=== PATIENT | male | born 1955 | race Caucasian/White ===

== ENCOUNTER 2023-10-01 11:42 | Inpatient (IN) | payer MEDICARE, MEDICAID ==
[~2023-10-01] VITALS: Ht 170.2 cm; Wt 86.7 kg
[~2023-10-01 11:42] MED LIST: BENZ1TAB93 PO; BENZ2TAB66 PO; CLON-527 PO; DIPH-423 PO; DIPH25CA83 PO; HALO10TA13 PO; HALO20TA7 PO; HALO5TAB PO; IBUP-1984 PO
[2023-10-01 12:11] LABS: BASOPHILS % (AUTO) 0.5 % (0-1); EOSINOPHILS # (AUTO) 0.1 X10'3 (0-0.9); EOSINOPHILS % (AUTO) 1.5 % (0-6); HEMATOCRIT 38.4 % (42.0-52.0); HEMOGLOBIN 12.8 g/dl (14.0-17.9); LYMPHOCYTES # (AUTO) 0.6 X10'3 (1.1-4.8); LYMPHOCYTES % (AUTO) 9.6 % (21-51); MEAN CORPUSCULAR HEMOGLOBIN 29.1 PG (27.0-31.0); MEAN CORPUSCULAR HGB CONC 33.3 g/dL (33.0-36.5); MEAN CORPUSCULAR VOLUME 87.3 FL (78-98); MEAN PLATELET VOLUME 8.6 FL (7.4-10.4); MONOCYTES # (AUTO) 0.5 X10'3 (0-0.9); MONOCYTES % (AUTO) 7.8 % (2-12); NEUTROPHILS # (AUTO) 5.2 X10'3 (1.8-7.7); NEUTROPHILS % (AUTO) 80.6 % (42-75); PLATELET COUNT 299 X10'3 (140-440); RED CELL DISTRIBUTION WIDTH 15.2 % (11.5-14.5); WHITE BLOOD COUNT 6.4 X10'3 (4.5-11.0)
[2023-10-01 12:33] LABS: ALBUMIN 3.2 G/DL (3.4-5.0); ANION GAP 9 (8-16); BLOOD UREA NITROGEN 20 MG/DL (7-18); BUN/CREATININE RATIO 18.9 (10.0-20.0); CALCIUM 8.9 MG/DL (8.5-10.1); CHLORIDE 104 MMOL/L (99-107); CREATININE 1.06 MG/DL (0.60-1.10); GLUCOSE 81 MG/DL (70-104); PRO BRAIN NATRIURETIC PEPTIDE < 30 PG/ML (0-125); SODIUM 139 MMOL/L (135-145); TOTAL CARBON DIOXIDE 26.2 MMOL/L (24-32); eCRCL 64 ML/MIN; eGFR 70 ML/MIN
[2023-10-01] MEDS: nicotine 14mg patch - 24hr TD ONE (12:54)
[2023-10-01] MEDS: CefTRIAXone/D5W-Rocephin 1gm 50 ML IV SCH (12:55)
[2023-10-01] MEDS: methylPREDNISolone sod succ 125mg/2ml vial IV ONE (12:55)
[2023-10-01] MEDS: ipratropium/albuterol 3ml nebule NEB PRN (13:07)
[2023-10-01 13:09] VITALS: PULSE 90; RESP 16; O2SAT 96
[2023-10-01 13:12] VITALS: PULSE 85; RESP 16; O2SAT 97
[2023-10-01 13:30] LABS: ALANINE AMINOTRANSFERASE 40 U/L (12-78); ALBUMIN/GLOBULIN RATIO 0.7 (1.1-1.5); ALKALINE PHOSPHATASE 152 IU/L (46-116); ASPARTATE AMINO TRANSFERASE 25 U/L (10-37); BILIRUBIN,TOTAL 0.2 MG/DL (0.1-1.0); LIPASE 29 U/L (16-77); TOTAL PROTEIN 8.1 G/DL (6.4-8.2)
[2023-10-01] MEDS ORDERED: magnesium hydroxide 30ml (MOM) UD suspension PO PRN (13:50)
[2023-10-01] MEDS ORDERED: ondansetron/PF 4mg/2ml inj IV PRN (13:50)
[2023-10-01] MEDS ORDERED: acetaminophen 325mg tablet PO PRN ×2 (13:50)
[2023-10-01] MEDS ORDERED: magnesium 4gm in 100ml NS 100 ML IV PRN (13:50)
[2023-10-01] MEDS ORDERED: albuterol 2.5 MG/3 ML nebule NEB PRN (13:50)
[2023-10-01] MEDS ORDERED: magnesium Cl slow-release 64mg tablet PO PRN (13:50)
[2023-10-01] MEDS ORDERED: mag hydrox/Alum hydrox/simeth 30ml oral suspension PO PRN (13:50)
[2023-10-01] MEDS ORDERED: potassium Cl 40MEQ/1/2NS 520ml 520 ML IV PRN (13:50)
[2023-10-01] MEDS ORDERED: magnesium 2GM in 50ml NS 50 ML IV PRN (13:50)
[2023-10-01] MEDS ORDERED: potassium Cl 20 mEq SR tablet PO PRN ×2 (13:50)
[2023-10-01] MEDS: azithromycin/NS 500mg/250ml 250 ML IV SCH (14:15)
[2023-10-01] MEDS: normal saline 1000ml 1,000 ML IV SCH (14:21)
[2023-10-01] MEDS: nicotine 21mg patch - 24 hr TD ONE (14:35)
[2023-10-01] MEDS: K and/or MAG REPLACEMENT MC SCH (19:51)
[2023-10-01] MEDS: docusate sod 100mg capsule PO SCH (19:51)
[2023-10-01 20:00] VITALS: BP 135/82; PULSE 91; RESP 20; TEMP 97.7; O2SAT 93
[2023-10-01] MEDS: enoxaparin 40mg/0.4ml syringe SQ SCH (20:19)
[2023-10-01] MEDS: clozapine 100mg tablet PO SCH (20:20)
[2023-10-01] MEDS: benztropine 1mg tablet PO SCH (20:20)
[2023-10-01 22:00] VITALS: BP 133/79; PULSE 89; RESP 18; TEMP 97.9; O2SAT 94
[2023-10-01 22:11] VITALS: PULSE 88; RESP 16; O2SAT 90
[2023-10-02] VITALS (9 sets, daily range): BP systolic 107–127; BP diastolic 62–84; PULSE 88–105; RESP 14–20; TEMP 98.3–98.9; O2SAT 89–95
[2023-10-02] MEDS: methylPREDNISolone sod succ 125mg/2ml vial IV SCH (02:00)
[2023-10-02 06:51] LABS: BASOPHILS % (AUTO) 0.2 % (0-1); EOSINOPHILS % (AUTO) 0 % (0-6); HEMOGLOBIN 12.5 g/dl (14.0-17.9); LYMPHOCYTES # (AUTO) 0.5 X10'3 (1.1-4.8); LYMPHOCYTES % (AUTO) 5.2 % (21-51); MEAN CORPUSCULAR HEMOGLOBIN 28.7 PG (27.0-31.0); MEAN PLATELET VOLUME 8.9 FL (7.4-10.4); MONOCYTES # (AUTO) 0.2 X10'3 (0-0.9); MONOCYTES % (AUTO) 2.1 % (2-12); NEUTROPHILS # (AUTO) 8.9 X10'3 (1.8-7.7); NEUTROPHILS % (AUTO) 92.5 % (42-75); PLATELET COUNT 282 X10'3 (140-440); RED BLOOD COUNT 4.36 X10'6 (4.70-6.10); RED CELL DISTRIBUTION WIDTH 14.9 % (11.5-14.5); WHITE BLOOD COUNT 9.6 X10'3 (4.5-11.0)
[2023-10-02 07:12] LABS: APTT 27 SECONDS (22-32); PROTHROMBIN TIME 10.6 SECONDS (9.0-12.0)
[2023-10-02 07:24] LABS: HEMOGLOBIN A1C 6.7 % (4.5-6.2)
[2023-10-02 07:32] LABS: ALANINE AMINOTRANSFERASE 37 U/L (12-78); ALBUMIN/GLOBULIN RATIO 0.6 (1.1-1.5); ALKALINE PHOSPHATASE 151 IU/L (46-116); ANION GAP 11 (8-16); ASPARTATE AMINO TRANSFERASE 16 U/L (10-37); BILIRUBIN,TOTAL 0.2 MG/DL (0.1-1.0); BLOOD UREA NITROGEN 22 MG/DL (7-18); BUN/CREATININE RATIO 26.8 (10.0-20.0); CHLORIDE 105 MMOL/L (99-107); CHOL/HDL RATIO 3.7 (0.00-4.99); CHOLESTEROL 123 MG/DL (0-200); CREATININE 0.82 MG/DL (0.60-1.10); GLUCOSE 162 MG/DL (70-104); HDL CHOLESTEROL 33 MG/DL (35-60); LDL CHOLESTEROL 79 MG/DL (50-100); PHOSPHORUS 2.6 MG/DL (2.3-4.5); POTASSIUM 4.5 MMOL/L (3.5-5.1); SODIUM 139 MMOL/L (135-145); TOTAL CARBON DIOXIDE 23.3 MMOL/L (24-32); TOTAL PROTEIN 7.8 G/DL (6.4-8.2); TRIGLYCERIDES 38 MG/DL (20-135); eCRCL 83 ML/MIN; eGFR > 90 ML/MIN
[2023-10-02] MEDS: guaiFENesin ER 600mg tablet PO SCH (08:00)
[2023-10-02] MEDS: pantoprazole 40mg Tablet.DR PO SCH (08:36)
[2023-10-02] MEDS: aspirin 81mg, enteric-coated 1 TAB TABLET.DR PO SCH (08:37)
[2023-10-02] MEDS: atorvastatin 20mg tablet PO SCH (08:37)
[2023-10-02] MEDS ORDERED: [UNRECOGNIZED DRUG - CODE] IM (14:16)
[2023-10-02] MEDS ORDERED: ASPI-1265 PO (14:30)
[2023-10-02] MEDS ORDERED: OMEP20TA23 PO (14:32)
[2023-10-02] MEDS ORDERED: PALI3TAB PO (14:36)
[2023-10-02] MEDS ORDERED: CLOZ100T21 PO (14:43)
[2023-10-02] MEDS ORDERED: CLOZ25TA12 PO (14:43)
[2023-10-02] MEDS ORDERED: CLOZ50TA9 PO (14:43)
[2023-10-02] MEDS ORDERED: ATOR10TA87 PO (14:46)
[2023-10-02] MEDS ORDERED: DEXTROSE 15 GM of carb/4 tabs (each vial/BOTTLE has 4 tablets) PO PRN ×2 (20:50)
[2023-10-02] MEDS ORDERED: glucagon, human recombinant 1mg kit SUBCUT PRN (20:50)
[2023-10-02] MEDS ORDERED: dextrose 50%-water 50ml dispensing syringe IV PRN ×2 (20:50)
[2023-10-02] MEDS ORDERED: ipratropium/albuterol 3ml nebule NEB PRN (21:00)
[2023-10-02] MEDS: insulin glargine (Lantus) pen - multi-dose SQ SCH (22:22)
[2023-10-02] MEDS: INSULIN LISPRO 100 UNIT/ML INSULN.PEN MULTI-DOSE SQ SCH (22:23)
[2023-10-03 02:54] VITALS: BP 110/72; PULSE 88; RESP 20; TEMP 97.5; O2SAT 95
[2023-10-03 06:30] VITALS: BP 142/76; PULSE 84; RESP 17; TEMP 98; O2SAT 94
[2023-10-03] MEDS: PALIPERIDONE 3 MG TAB.ER.24 PO SCH (07:31)
[2023-10-03 07:49] VITALS: PULSE 103; RESP 16; O2SAT 93
[2023-10-03 08:00] VITALS: RESP 18; O2SAT 94
[2023-10-03 09:59] LABS: BASOPHILS % (AUTO) 0 % (0-1); EOSINOPHILS % (AUTO) 0 % (0-6); HEMATOCRIT 35.8 % (42.0-52.0); HEMOGLOBIN 11.5 g/dl (14.0-17.9); LYMPHOCYTES # (AUTO) 0.4 X10'3 (1.1-4.8); LYMPHOCYTES % (AUTO) 2.8 % (21-51); MEAN CORPUSCULAR HEMOGLOBIN 28.1 PG (27.0-31.0); MEAN CORPUSCULAR HGB CONC 32.1 g/dL (33.0-36.5); MEAN CORPUSCULAR VOLUME 87.3 FL (78-98); MEAN PLATELET VOLUME 9.4 FL (7.4-10.4); MONOCYTES # (AUTO) 0.2 X10'3 (0-0.9); MONOCYTES % (AUTO) 1.1 % (2-12); NEUTROPHILS # (AUTO) 14.7 X10'3 (1.8-7.7); NEUTROPHILS % (AUTO) 96.1 % (42-75); PLATELET COUNT 277 X10'3 (140-440); RED BLOOD COUNT 4.11 X10'6 (4.70-6.10); RED CELL DISTRIBUTION WIDTH 15.1 % (11.5-14.5); WHITE BLOOD COUNT 15.3 X10'3 (4.5-11.0)
[2023-10-03 10:10] LABS: APTT 26 SECONDS (22-32); INR 1.1 INR
[2023-10-03 10:11] LABS: ALANINE AMINOTRANSFERASE 34 U/L (12-78); ALBUMIN 2.7 G/DL (3.4-5.0); ALBUMIN/GLOBULIN RATIO 0.7 (1.1-1.5); ALKALINE PHOSPHATASE 132 IU/L (46-116); ANION GAP 8 (8-16); ASPARTATE AMINO TRANSFERASE 18 U/L (10-37); BILIRUBIN,TOTAL 0.2 MG/DL (0.1-1.0); BLOOD UREA NITROGEN 23 MG/DL (7-18); CALCIUM 8.2 MG/DL (8.5-10.1); CHLORIDE 105 MMOL/L (99-107); GLUCOSE 249 MG/DL (70-104); MAGNESIUM 1.9 MG/DL (1.5-2.4); PHOSPHORUS 3.3 MG/DL (2.3-4.5); POTASSIUM 4.2 MMOL/L (3.5-5.1); SODIUM 138 MMOL/L (135-145); TOTAL CARBON DIOXIDE 25.2 MMOL/L (24-32); TOTAL PROTEIN 6.8 G/DL (6.4-8.2); eCRCL 68 ML/MIN; eGFR 75 ML/MIN
[2023-10-03 11:45] VITALS: BP 121/79; PULSE 75; RESP 18; TEMP 98
[2023-10-03] MEDS ORDERED: ATOR20TA66 PO (12:54)
[2023-10-03] MEDS ORDERED: CEFD300C3 PO (12:54)
[2023-10-03] MEDS ORDERED: GUAI600T45 PO (12:54)
[2023-10-03] MEDS ORDERED: PRED10TA23 PO (12:54)
[2023-10-03] MEDS ORDERED: LACT1CAP26 PO (12:54)
[2023-10-03] MEDS ORDERED: ALBU8HFA PO (12:54)
[2023-10-03] MEDS ORDERED: METF-436 PO (12:54)
[2023-10-03] MEDS ORDERED: BUDE10.2 INH (12:54)
[2023-10-03 13:30] VITALS: RESP 18; O2SAT 93
== END 2023-10-03 14:45 | disposition home or self-care (01) | DRG 193 ==
LOC: ER 11:43 → ED HOLD 13:49 → PCU 3S 19:34
PROVIDERS: ADMIT Family Medicine; ATTEND Family Medicine
DX: J15.9 Unspecified bacterial pneumonia (principal); J96.01 Acute respiratory failure with hypoxia; J44.1 Chronic obstructive pulmonary disease with (acute) exacerbation; J44.0 Chronic obstructive pulmonary disease with (acute) lower respiratory infection; F20.9 Schizophrenia, unspecified; R05.3 Chronic cough; Z20.822 Contact with and (suspected) exposure to COVID-19; F17.210 Nicotine dependence, cigarettes, uncomplicated; B18.2 Chronic viral hepatitis C; K74.60 Unspecified cirrhosis of liver; E11.9 Type 2 diabetes mellitus without complications
CPT/HCPCS: 36415; 71046; 80053; 80061; 82140; 82948; 83036; 83605; 83690; 83735; 83880; 84100; 84145; 84484; 85025; 85610; 85730; 87040; 87081; 87502; 87503; 87811; 93005; 94640; 94760; 96365; 96375; 99285; A4615; G0378; J0456; J0696; J1650; J1815; J2930; J7030; J7040

== ENCOUNTER 2024-03-25 10:32 | Emergency (ER) | payer MEDICARE, MEDICAID ==
[~2024-03-25] VITALS: Ht 177.8 cm; Wt 81.0 kg
[~2024-03-25 10:32] MED LIST changes: +ASPI-1265 PO; +ATOR20TA66 PO; +BENZ1TAB78 PO; -BENZ1TAB93 PO; -BENZ2TAB66 PO; +BUDE10.2 INH; -CLON-527 PO; -DIPH-423 PO; -DIPH25CA83 PO; +DOCU100C40 PO; -HALO10TA13 PO; -HALO20TA7 PO; -HALO5TAB PO; -IBUP-1984 PO; +METF-436 PO; +PALI3TAB PO; +PANT40TA54 PO; +TRAZ-251 PO; +polyethylene glycol 3350 pkt PO
[2024-03-25 10:51] VITALS: BP 135/77; PULSE 88; TEMP 98.6; O2SAT 96
[2024-03-25] MEDS ORDERED: DOCU-392 PO (11:21)
[2024-03-25] MEDS ORDERED: CLOZ100T13 PO (11:21)
[2024-03-25] MEDS ORDERED: HALO5TAB PO (11:21)
[2024-03-25 11:46] LABS: BASOPHILS % (AUTO) 0.5 % (0-1); EOSINOPHILS # (AUTO) 0.1 X10'3 (0-0.9); EOSINOPHILS % (AUTO) 2.7 % (0-6); HEMATOCRIT 36.5 % (42.0-52.0); HEMOGLOBIN 12.1 g/dl (14.0-17.9); LYMPHOCYTES # (AUTO) 0.6 X10'3 (1.1-4.8); MEAN CORPUSCULAR HEMOGLOBIN 30.3 PG (27.0-31.0); MEAN CORPUSCULAR HGB CONC 33.2 g/dL (33.0-36.5); MEAN CORPUSCULAR VOLUME 91.1 FL (78-98); MEAN PLATELET VOLUME 9.5 FL (7.4-10.4); MONOCYTES # (AUTO) 0.4 X10'3 (0-0.9); MONOCYTES % (AUTO) 8.6 % (2-12); NEUTROPHILS # (AUTO) 3.1 X10'3 (1.8-7.7); NEUTROPHILS % (AUTO) 73.2 % (42-75); PLATELET COUNT 182 X10'3 (140-440); RED BLOOD COUNT 4.01 X10'6 (4.70-6.10); RED CELL DISTRIBUTION WIDTH 15.3 % (11.5-14.5); WHITE BLOOD COUNT 4.2 X10'3 (4.5-11.0)
[2024-03-25 11:57] VITALS: RESP 16
[2024-03-25] MEDS ORDERED: CLOZ25TA12 PO (12:04)
[2024-03-25] MEDS ORDERED: PALI3TAB PO (12:04)
[2024-03-25] MEDS ORDERED: TRAZ-251 PO (12:04)
[2024-03-25] MEDS ORDERED: ASPI-1265 PO (12:04)
[2024-03-25] MEDS ORDERED: PANT-47 PO (12:04)
[2024-03-25] MEDS ORDERED: BENZ1TAB78 PO (12:04)
[2024-03-25] MEDS ORDERED: METF-1203 PO (12:04)
[2024-03-25] MEDS ORDERED: ATOR20TA PO (12:04)
[2024-03-25] MEDS ORDERED: BUDE10.26 INH (12:04)
[2024-03-25 12:28] LABS: BILIRUBIN,URINE NEGATIVE (Neg); CLARITY,URINE CLEAR (Clear); COLOR,URINE YELLOW (Yellow); GLUCOSE, URINE NEGATIVE (Neg); KETONES,URINE NEGATIVE (Neg); LEUKOCYTE ESTERASE ,URINE NEGATIVE (Neg); NITRITES, URINE NEGATIVE (Neg); OCCULT BLOOD,URINE TRACE-LYSED (Neg); PH,URINE 5.5 (4.8-8.0); PROTEIN,URINE NEGATIVE (Neg); UROBILINOGEN,URINE 0.2 E.U/dL (0.2-1.0)
[2024-03-25 12:29] LABS: UA COLLECTION TYPE CLN CATCH MIDSTREAM
[2024-03-25 12:33] LABS: BACTERIA,URINE FEW /HPF (Neg); RBC,URINE 0-2 /HPF (0-2); SQUAMOUS EPITHELIAL CELL,UR NONE SEEN /LPF (FEW); WBC,URINE 0-4 /HPF (0-4)
[2024-03-25 12:41] LABS: URINE AMPHETAMINE SCREEN NEGATIVE (Neg); URINE BARBITUATE SCREEN NEGATIVE (Neg); URINE BENZODIAZEPINES SCREEN NEGATIVE (Neg); URINE CANNABINOID SCREEN NEGATIVE (Neg); URINE COCAINE SCREEN NEGATIVE (Neg); URINE METHADONE SCREEN NEGATIVE (Neg); URINE OPIATE SCREEN NEGATIVE (Neg); URINE PHENCYCLIDINE SCREEN NEGATIVE (Neg)
[2024-03-25 12:55] LABS: ALBUMIN 3.7 G/DL (3.4-5.0); ANION GAP 9 (8-16); BLOOD UREA NITROGEN 13 MG/DL (7-18); BUN/CREATININE RATIO 13.5 (10.0-20.0); CALCIUM 8.3 MG/DL (8.5-10.1); CHLORIDE 109 MMOL/L (99-107); CREATININE 0.96 MG/DL (0.60-1.10); GLUCOSE 104 MG/DL (70-104); POTASSIUM 3.8 MMOL/L (3.5-5.1); SODIUM 145 MMOL/L (135-145); THYROID STIMULATING HORMONE 0.86 ulU/ml (0.34-4.50); TOTAL CARBON DIOXIDE 27.4 MMOL/L (24-32); eCRCL 78 ML/MIN; eGFR 78 ML/MIN
[2024-03-25 12:57] LABS: ETHANOL < 10 MG/DL (<10)
[2024-03-25] MEDS ORDERED: BUDESONIDE FORMOTEROL IH SCH (20:00)
[2024-03-25] MEDS ORDERED: benztropine 1mg tablet PO SCH (20:00)
[2024-03-25] MEDS ORDERED: metFORMIN 500mg tablet PO SCH (20:00)
[2024-03-25] MEDS ORDERED: docusate sod 100mg capsule PO SCH (20:00)
[2024-03-25] MEDS ORDERED: clozapine 100mg tablet PO SCH (21:00)
[2024-03-25] MEDS ORDERED: haloperidol 5mg tablet PO SCH (21:00)
[2024-03-25] MEDS ORDERED: traZODone 50mg tablet PO SCH (21:00)
[2024-03-26] MEDS ORDERED: pantoprazole 40mg Tablet.DR PO SCH (08:00)
[2024-03-26] MEDS ORDERED: atorvastatin 20mg tablet PO SCH (08:00)
[2024-03-26] MEDS ORDERED: clozapine 25mg tablet PO SCH (08:00)
[2024-03-26] MEDS ORDERED: aspirin 81mg tab.chew PO SCH (08:00)
[2024-03-26] MEDS ORDERED: PALIPERIDONE 3 MG TAB.ER.24 PO SCH (08:00)
== END 2024-03-25 18:08 | disposition still patient (30) ==
LOC: ER 10:33
DX: Z73.6 Limitation of activities due to disability (principal); Z20.822 Contact with and (suspected) exposure to COVID-19; F20.9 Schizophrenia, unspecified; F12.90 Cannabis use, unspecified, uncomplicated; F20.0 Paranoid schizophrenia; Z79.82 Long term (current) use of aspirin; Z79.899 Other long term (current) drug therapy
CPT/HCPCS: 36415; 80048; 80305; 81001; 84443; 85025; 87811; 99285; G0480; 80320

== ENCOUNTER 2024-04-22 11:37 | Inpatient (IN) | payer MEDICARE, MEDICAID ==
[~2024-04-22] VITALS: Ht 177.8 cm; Wt 79.9 kg
[~2024-04-22 11:37] MED LIST changes: +ATOR20TA PO; -ATOR20TA66 PO; -BUDE10.2 INH; +BUDE10.26 INH; +CLOZ100T13 PO; +CLOZ25TA12 PO; +DOCU-392 PO; -DOCU100C40 PO; +HALO5TAB PO; +METF-1203 PO; -METF-436 PO; +PANT-47 PO; -PANT40TA54 PO; -polyethylene glycol 3350 pkt PO
[2024-04-22 12:47] LABS: BASOPHILS % (AUTO) 0.4 % (0-1); EOSINOPHILS # (AUTO) 0.2 X10'3 (0-0.9); EOSINOPHILS % (AUTO) 3.7 % (0-6); HEMATOCRIT 38.2 % (42.0-52.0); HEMOGLOBIN 12.7 g/dl (14.0-17.9); LYMPHOCYTES # (AUTO) 0.8 X10'3 (1.1-4.8); LYMPHOCYTES % (AUTO) 11.6 % (21-51); MEAN CORPUSCULAR HEMOGLOBIN 30.6 PG (27.0-31.0); MEAN CORPUSCULAR HGB CONC 33.3 g/dL (33.0-36.5); MEAN CORPUSCULAR VOLUME 91.9 FL (78-98); MEAN PLATELET VOLUME 8.6 FL (7.4-10.4); MONOCYTES # (AUTO) 0.5 X10'3 (0-0.9); MONOCYTES % (AUTO) 6.7 % (2-12); NEUTROPHILS # (AUTO) 5.3 X10'3 (1.8-7.7); NEUTROPHILS % (AUTO) 77.6 % (42-75); PLATELET COUNT 198 X10'3 (140-440); RED BLOOD COUNT 4.15 X10'6 (4.70-6.10); RED CELL DISTRIBUTION WIDTH 15.3 % (11.5-14.5); WHITE BLOOD COUNT 6.8 X10'3 (4.5-11.0)
[2024-04-22] MEDS ORDERED: MOME13HF11 INH (12:48)
[2024-04-22] MEDS ORDERED: CLOZ100T PO (12:48)
[2024-04-22 13:02] LABS: BILIRUBIN,URINE NEGATIVE (Neg); CLARITY,URINE CLEAR (Clear); COLOR,URINE YELLOW (Yellow); GLUCOSE, URINE NEGATIVE (Neg); KETONES,URINE NEGATIVE (Neg); LEUKOCYTE ESTERASE ,URINE NEGATIVE (Neg); NITRITES, URINE NEGATIVE (Neg); OCCULT BLOOD,URINE TRACE-INTACT (Neg); PH,URINE 5.5 (4.8-8.0); PROTEIN,URINE NEGATIVE (Neg); UROBILINOGEN,URINE 0.2 E.U/dL (0.2-1.0)
[2024-04-22 13:10] LABS: UA COLLECTION TYPE CLN CATCH MIDSTREAM
[2024-04-22 13:11] LABS: BACTERIA,URINE NONE SEEN /HPF (Neg); RBC,URINE 0-2 /HPF (0-2); SQUAMOUS EPITHELIAL CELL,UR FEW /LPF (FEW); WBC,URINE NONE SEEN /HPF (0-4)
[2024-04-22 13:13] LABS: ALBUMIN 3.6 G/DL (3.4-5.0); ANION GAP 9 (8-16); BLOOD UREA NITROGEN 18 MG/DL (7-18); BUN/CREATININE RATIO 19.8 (10.0-20.0); CALCIUM 8.3 MG/DL (8.5-10.1); CHLORIDE 105 MMOL/L (99-107); CREATININE 0.91 MG/DL (0.60-1.10); ETHANOL < 10 MG/DL (<10); GLUCOSE 95 MG/DL (70-104); POTASSIUM 4.3 MMOL/L (3.5-5.1); SODIUM 139 MMOL/L (135-145); THYROID STIMULATING HORMONE 1.04 ulU/ml (0.34-4.50); TOTAL CARBON DIOXIDE 25.4 MMOL/L (24-32); eCRCL 82 ML/MIN; eGFR 83 ML/MIN
[2024-04-22 13:59] LABS: URINE AMPHETAMINE SCREEN NEGATIVE (Neg); URINE BARBITUATE SCREEN NEGATIVE (Neg); URINE BENZODIAZEPINES SCREEN NEGATIVE (Neg); URINE CANNABINOID SCREEN NEGATIVE (Neg); URINE COCAINE SCREEN NEGATIVE (Neg); URINE METHADONE SCREEN NEGATIVE (Neg); URINE OPIATE SCREEN NEGATIVE (Neg); URINE PHENCYCLIDINE SCREEN NEGATIVE (Neg)
[2024-04-22] MEDS: Mometasone/Formoterol (Dulera 200 Mcg/5 Mcg Inhaler) IH SCH (20:00)
[2024-04-22] MEDS ORDERED: magnesium hydroxide 30ml (MOM) UD suspension PO PRN (21:05)
[2024-04-22] MEDS ORDERED: loperamide 2mg capsule PO PRN (21:05)
[2024-04-22] MEDS ORDERED: mag hydrox/Alum hydrox/simeth 30ml oral suspension PO PRN (21:05)
[2024-04-22] MEDS ORDERED: acetaminophen 325mg tablet PO PRN (21:05)
[2024-04-22] MEDS: docusate sod 100mg capsule PO SCH (21:09)
[2024-04-22] MEDS: metFORMIN 500mg tablet PO SCH (21:09)
[2024-04-22] MEDS: clozapine 100mg tablet PO SCH (21:26)
[2024-04-22 22:00] VITALS: RESP 18; O2SAT 98
[2024-04-23 05:51] VITALS: BP 121/70; PULSE 78; RESP 16; TEMP 99; O2SAT 97
[2024-04-23 07:00] VITALS: BP 119/78; PULSE 73; RESP 16; TEMP 97.3; O2SAT 96
[2024-04-23] MEDS: aspirin 81mg tab.chew PO SCH (07:58)
[2024-04-23] MEDS: pantoprazole 40mg Tablet.DR PO SCH (07:59)
[2024-04-23] MEDS: FLU VACC TS2024-25(6MOS UP)/PF 45 MCG/0.5 ML SYRINGE IMVAC ONE (16:56)
[2024-04-23] MEDS: pneumococcal 23-VAL P-sac vacc 25 mcg/0.5ml vial IMVAC ONE (16:58)
[2024-04-23 19:00] VITALS: RESP 18; O2SAT 97
[2024-04-23] MEDS ORDERED: DEXTROSE 15 GM of carb/4 tabs (each vial/BOTTLE has 4 tablets) PO PRN ×2 (19:30)
[2024-04-23] MEDS ORDERED: glucagon, human recombinant 1mg kit SUBCUT PRN (19:30)
[2024-04-23] MEDS ORDERED: dextrose 50%-water 50ml dispensing syringe IV PRN ×2 (19:30)
[2024-04-23 20:00] VITALS: BP 112/65; PULSE 78; RESP 18; TEMP 98.5; O2SAT 97
[2024-04-23] MEDS ORDERED: INSULIN LISPRO 100 UNIT/ML INSULN.PEN MULTI-DOSE SQ SCH (21:00)
[2024-04-23] MEDS: metFORMIN 500mg tablet PO SCH (21:11)
[2024-04-24 07:00] VITALS: RESP 16; O2SAT 96
[2024-04-24 07:53] LABS: BASOPHILS % (AUTO) 0.5 % (0-1); EOSINOPHILS # (AUTO) 0.4 X10'3 (0-0.9); EOSINOPHILS % (AUTO) 7.5 % (0-6); HEMOGLOBIN 13.9 g/dl (14.0-17.9); LYMPHOCYTES # (AUTO) 1.1 X10'3 (1.1-4.8); LYMPHOCYTES % (AUTO) 22.3 % (21-51); MEAN CORPUSCULAR HEMOGLOBIN 30.8 PG (27.0-31.0); MEAN CORPUSCULAR HGB CONC 33.8 g/dL (33.0-36.5); MEAN CORPUSCULAR VOLUME 91.1 FL (78-98); MEAN PLATELET VOLUME 8.8 FL (7.4-10.4); MONOCYTES # (AUTO) 0.4 X10'3 (0-0.9); MONOCYTES % (AUTO) 8.1 % (2-12); NEUTROPHILS # (AUTO) 3.1 X10'3 (1.8-7.7); NEUTROPHILS % (AUTO) 61.6 % (42-75); PLATELET COUNT 207 X10'3 (140-440); RED BLOOD COUNT 4.51 X10'6 (4.70-6.10); RED CELL DISTRIBUTION WIDTH 14.9 % (11.5-14.5); WHITE BLOOD COUNT 5.1 X10'3 (4.5-11.0)
[2024-04-24 08:00] VITALS: BP 131/77; PULSE 16; RESP 16; TEMP 97.9; O2SAT 96
[2024-04-24 10:12] LABS: OCCULT BLOOD STOOL NEGATIVE (Neg)
[2024-04-24 19:00] VITALS: RESP 16; O2SAT 97
[2024-04-24 20:00] VITALS: BP 127/78; PULSE 77; RESP 16; TEMP 98.5; O2SAT 97
[2024-04-25 07:30] VITALS: BP 106/73; PULSE 83; RESP 16; TEMP 98; O2SAT 95
[2024-04-25] MEDS: ipratropium/albuterol 3ml nebule NEB SCH (14:45)
[2024-04-25 16:59] VITALS: PULSE 78; RESP 17; O2SAT 95
[2024-04-25 19:00] VITALS: BP 111/82; PULSE 70; RESP 16; TEMP 97.6; O2SAT 96
[2024-04-25 20:00] VITALS: RESP 16; O2SAT 96
[2024-04-25 20:20] VITALS: PULSE 97; RESP 18; O2SAT 85
[2024-04-25 20:26] VITALS: PULSE 80; RESP 17
[2024-04-26] VITALS (7 sets, daily range): BP systolic 110–116; BP diastolic 72–76; PULSE 68–95; RESP 12–17; TEMP 97.4–98.8; O2SAT 93–95
[2024-04-26] MEDS: acetaminophen 325mg tablet PO PRN (09:40)
[2024-04-27 07:30] VITALS: BP 105/60; PULSE 74; RESP 16; TEMP 97.9; O2SAT 95
[2024-04-27] MEDS ORDERED: CLOZ100T PO (14:08)
[2024-04-27 20:00] VITALS: BP 109/66; PULSE 79; RESP 18; TEMP 99; O2SAT 95
[2024-04-29 09:09] LABS: CLOZ+NORCLOZ TOTAL 331 ng/mL (.); CLOZAPINE, SERUM 212 ng/mL (350-600); NORCLOZAPINE, SERUM 119 ng/mL (Not Estab.)
== END 2024-04-27 21:31 | disposition home or self-care (01) | DRG 885 ==
LOC: ER 11:38 → ADULT MH 15:20
PROVIDERS: ADMIT Psychiatry & Neurology Psychiatry; ATTEND Psychiatry & Neurology Psychiatry
PROC: GZHZZZZ Group Psychotherapy (ICD-10-PCS; principal; 2024-04-23)
DX: F20.0 Paranoid schizophrenia (principal); E11.9 Type 2 diabetes mellitus without complications; E78.5 Hyperlipidemia, unspecified; J44.9 Chronic obstructive pulmonary disease, unspecified; Z20.822 Contact with and (suspected) exposure to COVID-19; Z87.891 Personal history of nicotine dependence; Z91.148 Patient's other noncompliance with medication regimen for other reason
CPT/HCPCS: 36415; 80048; 80305; 80320; 81001; 82272; 84443; 85025; 87081; 87811; 94640; 94760; 99285; J1815

== ENCOUNTER 2024-06-15 12:37 | Inpatient (IN) | payer MEDICARE, MEDICAID ==
[~2024-06-15] VITALS: Ht 172.7 cm; Wt 81.6 kg
[~2024-06-15 12:37] MED LIST changes: -ASPI-1265 PO; +ASPI81TA53 PO; -ATOR20TA PO; +ATOR20TA66 PO; -BENZ1TAB78 PO; -BUDE10.26 INH; -CLOZ25TA12 PO; -HALO5TAB PO; +MOME13HF11 INH; -PALI3TAB PO; -TRAZ-251 PO
[2024-06-15] MEDS ORDERED: BUDE10.32 IH (13:39)
[2024-06-15] MEDS ORDERED: ASEN5TAB10 PO (13:39)
[2024-06-15 14:04] LABS: BILIRUBIN,URINE NEGATIVE (Neg); CLARITY,URINE CLEAR (Clear); COLOR,URINE YELLOW (Yellow); GLUCOSE, URINE NEGATIVE (Neg); KETONES,URINE NEGATIVE (Neg); LEUKOCYTE ESTERASE ,URINE NEGATIVE (Neg); NITRITES, URINE NEGATIVE (Neg); OCCULT BLOOD,URINE TRACE-INTACT (Neg); PROTEIN,URINE NEGATIVE (Neg); UROBILINOGEN,URINE 0.2 E.U/dL (0.2-1.0)
[2024-06-15 14:16] LABS: UA COLLECTION TYPE NON-SPECIFIED
[2024-06-15 14:17] LABS: WBC,URINE 0-4 /HPF (0-4)
[2024-06-15 14:18] LABS: BASOPHILS % (AUTO) 0.5 % (0-1); EOSINOPHILS # (AUTO) 0.2 X10'3 (0-0.9); EOSINOPHILS % (AUTO) 4.6 % (0-6); HEMATOCRIT 39.9 % (42.0-52.0); HEMOGLOBIN 13.1 g/dl (14.0-17.9); LYMPHOCYTES # (AUTO) 0.9 X10'3 (1.1-4.8); LYMPHOCYTES % (AUTO) 19.4 % (21-51); MEAN CORPUSCULAR HEMOGLOBIN 29.8 PG (27.0-31.0); MEAN CORPUSCULAR HGB CONC 32.9 g/dL (33.0-36.5); MEAN CORPUSCULAR VOLUME 90.5 FL (78-98); MEAN PLATELET VOLUME 8.4 FL (7.4-10.4); MONOCYTES # (AUTO) 0.4 X10'3 (0-0.9); MONOCYTES % (AUTO) 7.7 % (2-12); NEUTROPHILS # (AUTO) 3.2 X10'3 (1.8-7.7); NEUTROPHILS % (AUTO) 67.8 % (42-75); PLATELET COUNT 182 X10'3 (140-440); RED BLOOD COUNT 4.42 X10'6 (4.70-6.10); RED CELL DISTRIBUTION WIDTH 14.5 % (11.5-14.5); WHITE BLOOD COUNT 4.7 X10'3 (4.5-11.0)
[2024-06-15 14:18] LABS: BACTERIA,URINE NONE SEEN /HPF (Neg); MUCUS STRANDS NONE SEEN /LPF (Neg); RBC,URINE 0-2 /HPF (0-2); SQUAMOUS EPITHELIAL CELL,UR NONE SEEN /LPF (FEW)
[2024-06-15] MEDS ORDERED: ATOR20TA PO (14:24)
[2024-06-15] MEDS ORDERED: ASPI-1265 PO (14:24)
[2024-06-15] MEDS ORDERED: CLOZ100T13 PO (14:26)
[2024-06-15] MEDS ORDERED: DOCU100C40 PO (14:27)
[2024-06-15] MEDS ORDERED: METF-516 PO (14:27)
[2024-06-15] MEDS ORDERED: PANT40TA54 PO (14:28)
[2024-06-15] MEDS ORDERED: MOME13HF11 INH (14:29)
[2024-06-15 14:32] LABS: URINE AMPHETAMINE SCREEN NEGATIVE (Neg); URINE BARBITUATE SCREEN NEGATIVE (Neg); URINE BENZODIAZEPINES SCREEN NEGATIVE (Neg); URINE CANNABINOID SCREEN NEGATIVE (Neg); URINE COCAINE SCREEN NEGATIVE (Neg); URINE METHADONE SCREEN NEGATIVE (Neg); URINE OPIATE SCREEN NEGATIVE (Neg); URINE PHENCYCLIDINE SCREEN NEGATIVE (Neg)
[2024-06-15 14:54] LABS: ALBUMIN 3.5 G/DL (3.4-5.0); ANION GAP 5 (8-16); BLOOD UREA NITROGEN 11 MG/DL (7-18); BUN/CREATININE RATIO 13.9 (10.0-20.0); CALCIUM 8.8 MG/DL (8.5-10.1); CHLORIDE 108 MMOL/L (99-107); CREATININE 0.79 MG/DL (0.60-1.10); ETHANOL < 10 MG/DL (<10); GLUCOSE 80 MG/DL (70-104); POTASSIUM 4.3 MMOL/L (3.5-5.1); SODIUM 141 MMOL/L (135-145); THYROID STIMULATING HORMONE 0.96 ulU/ml (0.34-4.50); TOTAL CARBON DIOXIDE 28.4 MMOL/L (24-32); eCRCL 89 ML/MIN; eGFR > 90 ML/MIN
[2024-06-15] MEDS ORDERED: DOCU-149 PO (15:54)
[2024-06-15 17:54] VITALS: PULSE 81; RESP 14; O2SAT 94
[2024-06-15] MEDS: albuterol 2.5 MG/3 ML nebule NEB SCH (19:27)
[2024-06-15] MEDS: budesonide 0.5mg/2ml UD nebule IH SCH (19:27)
[2024-06-15 19:28] VITALS: PULSE 84; RESP 16; O2SAT 94
[2024-06-15] MEDS ORDERED: MOMETASONE IH SCH (20:00)
[2024-06-15] MEDS: clozapine 100mg tablet PO SCH (20:00)
[2024-06-15] MEDS ORDERED: FORMOTEROL IH SCH (20:00)
[2024-06-15] MEDS: metFORMIN 500mg tablet PO SCH (20:01)
[2024-06-15] MEDS: docusate sod 100mg capsule PO SCH (20:01)
[2024-06-15] MEDS: asenapine 5mg TAB.SUBL SL SCH (20:01)
[2024-06-15 20:17] VITALS: RESP 18; O2SAT 98
[2024-06-15 20:20] VITALS: BP 109/78; PULSE 91; RESP 18; TEMP 98.1; O2SAT 98
[2024-06-15] MEDS ORDERED: acetaminophen 325mg tablet PO PRN ×2 (20:25)
[2024-06-15] MEDS ORDERED: mag hydrox/Alum hydrox/simeth 30ml oral suspension PO PRN (20:25)
[2024-06-15] MEDS ORDERED: CLOZ25TA12 PO (22:19)
[2024-06-16 07:10] VITALS: RESP 18; O2SAT 98
[2024-06-16] MEDS: aspirin 81mg tab.chew PO SCH (07:50)
[2024-06-16] MEDS: atorvastatin 20mg tablet PO SCH (07:50)
[2024-06-16] MEDS: pantoprazole 40mg Tablet.DR PO SCH (07:50)
[2024-06-16] MEDS: nicotine 21mg patch - 24 hr TD SCH (07:50)
[2024-06-16 08:00] VITALS: BP 102/62; PULSE 68; RESP 16; TEMP 97.8; O2SAT 95
[2024-06-16 08:48] LABS: CHOL/HDL RATIO 3.3 (0.00-4.99); CHOLESTEROL 119 MG/DL (0-200); HDL CHOLESTEROL 36 MG/DL (35-60); LDL CHOLESTEROL 66 MG/DL (50-100); TRIGLYCERIDES 55 MG/DL (20-135)
[2024-06-16 09:04] VITALS: PULSE 82; RESP 16; O2SAT 95
[2024-06-16 09:11] VITALS: PULSE 77; RESP 16
[2024-06-16 09:23] LABS: HEMOGLOBIN A1C 5.8 % (4.5-6.2)
[2024-06-16] MEDS: asenapine 5mg TAB.SUBL SL PRN (09:45)
[2024-06-16 19:00] VITALS: RESP 16
[2024-06-16 20:00] VITALS: RESP 16
[2024-06-16] MEDS: clozapine 25mg tablet PO SCH (20:30)
[2024-06-16] MEDS: traZODone 50mg tablet PO ONE (20:57)
[2024-06-17 07:00] VITALS: RESP 16; O2SAT 97
[2024-06-17 08:00] VITALS: BP 122/82; PULSE 70; RESP 16; TEMP 97.3; O2SAT 97
[2024-06-17 19:10] VITALS: RESP 20; O2SAT 97
[2024-06-17 20:00] VITALS: BP 119/76; PULSE 85; RESP 20; TEMP 98; O2SAT 97
[2024-06-18 07:30] VITALS: BP 128/90; PULSE 85; RESP 18; TEMP 97.7; O2SAT 97
[2024-06-18 18:00] VITALS: BP 117/72; PULSE 76; RESP 16; TEMP 97.3; O2SAT 97
[2024-06-18 19:00] VITALS: RESP 16
[2024-06-18 19:14] VITALS: PULSE 71; RESP 16; O2SAT 96
[2024-06-18 19:21] VITALS: PULSE 69; RESP 16
[2024-06-18 20:00] VITALS: BP 117/72; PULSE 76; RESP 16; TEMP 97.3; O2SAT 97
[2024-06-19 07:30] VITALS: BP 108/61; PULSE 64; RESP 16; TEMP 97.8; O2SAT 95
[2024-06-19 19:00] VITALS: RESP 15; O2SAT 97
[2024-06-19 20:00] VITALS: BP 111/64; PULSE 61; RESP 15; TEMP 98.1; O2SAT 97
[2024-06-20 07:30] VITALS: BP 112/80; PULSE 88; RESP 18; TEMP 99.6; O2SAT 97
[2024-06-20 19:44] VITALS: BP 111/75; PULSE 73; RESP 15; TEMP 97.5; O2SAT 97
[2024-06-21 07:30] VITALS: BP 129/76; PULSE 84; RESP 15; TEMP 97.2; O2SAT 95
[2024-06-21 19:23] VITALS: BP 109/74; PULSE 76; RESP 16; TEMP 97.8; O2SAT 98
[2024-06-22 07:30] VITALS: BP 123/70; PULSE 74; RESP 16; TEMP 97.7; O2SAT 95
[2024-06-22 07:45] VITALS: RESP 16; O2SAT 95
[2024-06-22 19:00] VITALS: RESP 16; O2SAT 96
[2024-06-22 20:00] VITALS: BP 108/80; PULSE 78; RESP 16; TEMP 97.2; O2SAT 96
[2024-06-23 07:00] VITALS: RESP 16; O2SAT 95
[2024-06-23 07:50] VITALS: BP 122/75; PULSE 62; RESP 16; TEMP 98; O2SAT 95
[2024-06-23] MEDS: NICOTINE POLACRILEX 2 MG LOZENGE BC PRN (08:44)
[2024-06-23] MEDS: LORazepam 1 MG tablet PO ONE (10:46)
[2024-06-23 19:00] VITALS: BP 121/76; PULSE 73; RESP 16; TEMP 97.6; O2SAT 96
[2024-06-24 07:00] VITALS: RESP 16; O2SAT 95
[2024-06-24 08:00] VITALS: BP 127/73; PULSE 72; RESP 16; TEMP 97.8; O2SAT 95
[2024-06-24 08:34] VITALS: PULSE 91; RESP 16; O2SAT 91
[2024-06-24 08:35] VITALS: PULSE 69; RESP 16
[2024-06-24 19:00] VITALS: RESP 16; O2SAT 95
[2024-06-24 20:00] VITALS: BP 112/70; PULSE 76; RESP 16; TEMP 97.9; O2SAT 95
[2024-06-25 07:31] VITALS: BP 127/79; PULSE 77; RESP 14; TEMP 97.1; O2SAT 96
[2024-06-25 09:48] VITALS: RESP 16; O2SAT 96
[2024-06-25 10:22] LABS: BASOPHILS % (AUTO) 0.7 % (0-1); EOSINOPHILS # (AUTO) 0.5 X10'3 (0-0.9); EOSINOPHILS % (AUTO) 9.6 % (0-6); HEMATOCRIT 42.2 % (42.0-52.0); HEMOGLOBIN 14.3 g/dl (14.0-17.9); LYMPHOCYTES # (AUTO) 1.1 X10'3 (1.1-4.8); MEAN CORPUSCULAR HEMOGLOBIN 30.2 PG (27.0-31.0); MEAN CORPUSCULAR HGB CONC 33.9 g/dL (33.0-36.5); MEAN CORPUSCULAR VOLUME 89.2 FL (78-98); MEAN PLATELET VOLUME 8.5 FL (7.4-10.4); MONOCYTES # (AUTO) 0.4 X10'3 (0-0.9); MONOCYTES % (AUTO) 7.4 % (2-12); NEUTROPHILS # (AUTO) 3.5 X10'3 (1.8-7.7); NEUTROPHILS % (AUTO) 63.3 % (42-75); PLATELET COUNT 181 X10'3 (140-440); RED BLOOD COUNT 4.73 X10'6 (4.70-6.10); RED CELL DISTRIBUTION WIDTH 13.8 % (11.5-14.5); WHITE BLOOD COUNT 5.5 X10'3 (4.5-11.0)
[2024-06-25 19:00] VITALS: RESP 18
[2024-06-25 20:00] VITALS: BP 134/77; RESP 18; TEMP 97.5
[2024-06-25 20:20] VITALS: PULSE 71; RESP 16; O2SAT 95
[2024-06-26 07:43] VITALS: RESP 16
[2024-06-26 09:02] VITALS: RESP 16
[2024-06-26 19:00] VITALS: RESP 18; O2SAT 98
[2024-06-26 20:00] VITALS: BP 126/68; PULSE 72; RESP 18; TEMP 98.3
[2024-06-26 20:13] VITALS: PULSE 81; RESP 16; O2SAT 97
[2024-06-27 07:30] VITALS: BP 125/83; PULSE 77; RESP 16; TEMP 97.2; O2SAT 95
[2024-06-27 08:48] VITALS: RESP 16; O2SAT 95
[2024-06-27] MEDS: magnesium hydroxide 30ml (MOM) UD suspension PO PRN (08:56)
[2024-06-27 19:00] VITALS: RESP 15; O2SAT 98
[2024-06-27 19:58] VITALS: BP 128/78; PULSE 88; RESP 15; TEMP 98; O2SAT 98
[2024-06-28 07:00] VITALS: RESP 18; O2SAT 95
[2024-06-28 08:00] VITALS: BP 98/68; PULSE 82; RESP 18; TEMP 97.9; O2SAT 95
[2024-06-28 09:14] VITALS: PULSE 84; RESP 17; O2SAT 98
[2024-06-28 09:19] VITALS: PULSE 72; RESP 17
[2024-06-28 19:00] VITALS: RESP 16; O2SAT 98
[2024-06-28 20:00] VITALS: BP 120/70; PULSE 56; RESP 16; TEMP 97.9; O2SAT 98
[2024-06-28] MEDS ORDERED: CLOZAPINE 25 MG oral disintegrating tablet PO SCH (20:00)
[2024-06-28] MEDS: CLOZAPINE 100 MG TAB.RAPDIS PO SCH (20:09)
[2024-06-28] MEDS: CLOZAPINE 25 MG oral disintegrating tablet PO SCH (20:09)
[2024-06-28] MEDS ORDERED: haloperidol lactate 5mg/ml inj IM PRN (21:00)
[2024-06-29 07:21] VITALS: BP 119/77; PULSE 84; RESP 16; TEMP 97.4; O2SAT 98
[2024-06-29 08:00] VITALS: RESP 16; O2SAT 98
[2024-06-29 09:11] VITALS: PULSE 84; RESP 16; O2SAT 98
[2024-06-29 19:00] VITALS: BP 115/71; PULSE 65; RESP 16; TEMP 97.8; O2SAT 96
[2024-06-30 07:08] VITALS: BP 123/86; PULSE 80; RESP 17; TEMP 97.7; O2SAT 96
[2024-06-30 08:07] VITALS: RESP 17; O2SAT 96
[2024-06-30 09:13] VITALS: PULSE 79; RESP 14; O2SAT 98
[2024-06-30 19:00] VITALS: RESP 18; O2SAT 95
[2024-06-30 19:31] VITALS: BP 112/74; PULSE 71; RESP 18; TEMP 98; O2SAT 95
[2024-07-01] VITALS (7 sets, daily range): BP systolic 123–136; BP diastolic 66–77; PULSE 68–82; RESP 14–20; TEMP 97.5–98.7; O2SAT 95–100
[2024-07-01] MEDS: LORazepam 1 MG tablet PO ONE (13:15)
[2024-07-01] MEDS: LORazepam 1 MG tablet PO SCH (20:53)
[2024-07-02 07:30] VITALS: RESP 16
[2024-07-02 08:00] VITALS: RESP 16
[2024-07-02 19:00] VITALS: RESP 16; O2SAT 96
[2024-07-02 19:27] VITALS: BP 108/62; PULSE 75; RESP 16; TEMP 98; O2SAT 96
[2024-07-02 19:42] VITALS: PULSE 72; RESP 16; O2SAT 97
[2024-07-03 07:30] VITALS: BP 128/87; PULSE 94; RESP 16; TEMP 97.7; O2SAT 92
[2024-07-03 08:00] VITALS: RESP 16; O2SAT 92
[2024-07-03 09:04] LABS: CHOL/HDL RATIO 2.8 (0.00-4.99); CHOLESTEROL 126 MG/DL (0-200); HDL CHOLESTEROL 45 MG/DL (35-60); LDL CHOLESTEROL 66 MG/DL (50-100); TRIGLYCERIDES 61 MG/DL (20-135)
[2024-07-03 15:00] VITALS: PULSE 79; RESP 16; O2SAT 98
[2024-07-03 15:02] VITALS: PULSE 79; RESP 16
[2024-07-03 19:09] VITALS: BP 106/71; PULSE 80; RESP 19; TEMP 98.8; O2SAT 100
[2024-07-03 20:00] VITALS: RESP 19; O2SAT 100
[2024-07-04 07:00] VITALS: RESP 16; O2SAT 94
[2024-07-04 08:00] VITALS: BP 107/53; PULSE 74; RESP 16; TEMP 97.2; O2SAT 98
[2024-07-04 09:29] VITALS: PULSE 104; RESP 16; O2SAT 93
[2024-07-04 09:34] VITALS: PULSE 98; RESP 15
[2024-07-04 19:00] VITALS: RESP 18; O2SAT 95
[2024-07-04 19:43] VITALS: BP 107/46; PULSE 69; RESP 18; TEMP 97.3; O2SAT 95
[2024-07-05 07:20] VITALS: BP 118/81; PULSE 84; RESP 16; TEMP 98; O2SAT 92
[2024-07-05 09:41] VITALS: PULSE 91; RESP 17; O2SAT 95
[2024-07-05 19:00] VITALS: RESP 16; O2SAT 99
[2024-07-05 20:00] VITALS: BP 111/71; PULSE 90; RESP 16; TEMP 97.1; O2SAT 96
[2024-07-06 08:00] VITALS: BP 124/84; PULSE 80; RESP 16; TEMP 97.7; O2SAT 94
[2024-07-06 19:00] VITALS: RESP 20; O2SAT 93
[2024-07-06 20:00] VITALS: BP 120/75; PULSE 66; RESP 18; TEMP 97.8; O2SAT 93
[2024-07-07 07:36] VITALS: BP 96/79; PULSE 82; RESP 16; TEMP 98.2; O2SAT 96
[2024-07-07 08:00] VITALS: RESP 16; O2SAT 96
[2024-07-07 17:07] VITALS: PULSE 64; RESP 12; O2SAT 99
[2024-07-07 19:00] VITALS: RESP 16
[2024-07-07 20:00] VITALS: RESP 16
[2024-07-08 02:51] VITALS: RESP 16
[2024-07-08 07:00] VITALS: RESP 16; O2SAT 90
[2024-07-08 08:00] VITALS: BP 96/73; PULSE 87; RESP 16; TEMP 97.7; O2SAT 90
[2024-07-08 19:00] VITALS: RESP 14
[2024-07-08 20:21] VITALS: PULSE 81; RESP 16; O2SAT 96
[2024-07-09 08:00] VITALS: BP 109/72; PULSE 80; RESP 15; TEMP 97.5; O2SAT 97
[2024-07-09 12:32] VITALS: PULSE 72; RESP 16; O2SAT 95
[2024-07-09 19:00] VITALS: RESP 19; O2SAT 100
[2024-07-09 19:24] VITALS: PULSE 89; RESP 16; O2SAT 96
[2024-07-09 20:00] VITALS: BP 109/72; PULSE 80; RESP 15; TEMP 97.8; O2SAT 97
[2024-07-10 07:30] VITALS: BP 148/104; PULSE 74; RESP 12; TEMP 98
[2024-07-10 08:00] VITALS: RESP 12; O2SAT 96
[2024-07-10 09:35] VITALS: PULSE 85; RESP 16; O2SAT 95
[2024-07-10 19:10] VITALS: RESP 15; O2SAT 97
[2024-07-10 20:00] VITALS: BP 119/74; PULSE 70; RESP 15; TEMP 97.9
[2024-07-11 08:00] VITALS: RESP 14
[2024-07-11 09:00] VITALS: RESP 14
[2024-07-11 19:30] VITALS: RESP 16; O2SAT 99
[2024-07-11 20:00] VITALS: BP 110/76; PULSE 80; RESP 16; TEMP 98.7; O2SAT 99
[2024-07-12 07:00] VITALS: RESP 14; O2SAT 91
[2024-07-12 08:00] VITALS: BP 102/75; PULSE 88; RESP 14; TEMP 97; O2SAT 91
[2024-07-12 19:00] VITALS: RESP 12; O2SAT 96
[2024-07-12 20:00] VITALS: BP 94/64; PULSE 68; RESP 12; TEMP 97.8; O2SAT 96
[2024-07-13 07:00] VITALS: RESP 20; O2SAT 96
[2024-07-13 08:00] VITALS: BP 104/63; PULSE 79; RESP 20; TEMP 97.4; O2SAT 96
[2024-07-13 12:58] LABS: BASOPHILS % (AUTO) 0.5 % (0-1); EOSINOPHILS # (AUTO) 0.5 X10'3 (0-0.9); EOSINOPHILS % (AUTO) 10.2 % (0-6); HEMATOCRIT 43.4 % (42.0-52.0); HEMOGLOBIN 14.3 g/dl (14.0-17.9); MEAN CORPUSCULAR HGB CONC 32.8 g/dL (33.0-36.5); MEAN CORPUSCULAR VOLUME 88.2 FL (78-98); MEAN PLATELET VOLUME 8.6 FL (7.4-10.4); MONOCYTES # (AUTO) 0.3 X10'3 (0-0.9); MONOCYTES % (AUTO) 6.1 % (2-12); NEUTROPHILS # (AUTO) 3.4 X10'3 (1.8-7.7); NEUTROPHILS % (AUTO) 64.2 % (42-75); PLATELET COUNT 161 X10'3 (140-440); RED BLOOD COUNT 4.92 X10'6 (4.70-6.10); RED CELL DISTRIBUTION WIDTH 13.4 % (11.5-14.5); WHITE BLOOD COUNT 5.3 X10'3 (4.5-11.0)
[2024-07-13 19:00] VITALS: RESP 16; O2SAT 96
[2024-07-13 20:00] VITALS: BP 119/70; PULSE 75; RESP 16; TEMP 97.5; O2SAT 86
[2024-07-14 07:00] VITALS: RESP 16; O2SAT 95
[2024-07-14 08:00] VITALS: BP 123/74; PULSE 74; RESP 16; TEMP 97.6; O2SAT 95
[2024-07-14 09:50] VITALS: PULSE 72; RESP 20; O2SAT 95
[2024-07-14 19:00] VITALS: RESP 16; O2SAT 97
[2024-07-14 20:00] VITALS: BP 110/74; PULSE 87; RESP 16; TEMP 97; O2SAT 97
[2024-07-15 07:00] VITALS: RESP 16; O2SAT 95
[2024-07-15 08:00] VITALS: BP 123/88; PULSE 88; RESP 16; TEMP 98.1; O2SAT 95
[2024-07-15 19:00] VITALS: RESP 17; O2SAT 99
[2024-07-15 20:00] VITALS: BP 115/58; PULSE 69; RESP 16; TEMP 97.9; O2SAT 99
[2024-07-16 07:30] VITALS: BP 114/72; PULSE 105; RESP 18; TEMP 97.5; O2SAT 95
[2024-07-16 08:00] VITALS: RESP 18; O2SAT 93
[2024-07-16 08:50] VITALS: PULSE 90; RESP 16; O2SAT 98
[2024-07-16 08:55] VITALS: PULSE 98; RESP 16
[2024-07-16 18:45] VITALS: RESP 18; O2SAT 93
[2024-07-16 20:00] VITALS: BP 119/72; PULSE 76; RESP 16; TEMP 96.9; O2SAT 96
[2024-07-17 07:23] VITALS: BP 106/77; PULSE 105; RESP 12; TEMP 97.6; O2SAT 96
[2024-07-17 08:00] VITALS: RESP 12; O2SAT 96
[2024-07-17 18:35] VITALS: RESP 12; O2SAT 96
[2024-07-17 19:00] VITALS: BP 109/73; PULSE 101; RESP 16; TEMP 97.1; O2SAT 94
[2024-07-18 07:30] VITALS: BP 116/75; PULSE 89; RESP 16; TEMP 97.5; O2SAT 95
[2024-07-18 08:00] VITALS: RESP 16; O2SAT 95
[2024-07-18 18:48] VITALS: RESP 16; O2SAT 95
[2024-07-18 19:36] VITALS: BP 108/62; PULSE 76; RESP 16; TEMP 98.7; O2SAT 99
[2024-07-19 07:00] VITALS: RESP 16; O2SAT 97
[2024-07-19 08:00] VITALS: BP 103/70; PULSE 90; RESP 16; TEMP 97.7; O2SAT 97
[2024-07-19 19:00] VITALS: BP 143/82; PULSE 84; RESP 18; TEMP 97.3; O2SAT 99
[2024-07-20 07:00] VITALS: RESP 15; O2SAT 95
[2024-07-20 08:00] VITALS: BP 150/78; PULSE 88; RESP 17; TEMP 98.1; O2SAT 95
[2024-07-20 19:00] VITALS: RESP 16; O2SAT 95
[2024-07-20 20:18] VITALS: BP 121/68; PULSE 62; RESP 16; TEMP 97.7; O2SAT 95
[2024-07-21 07:30] VITALS: BP 116/77; PULSE 93; RESP 14; TEMP 97.9; O2SAT 97
[2024-07-21 08:00] VITALS: RESP 14; O2SAT 97
[2024-07-21 08:17] VITALS: PULSE 95; RESP 16; O2SAT 96
[2024-07-21 19:00] VITALS: RESP 16; O2SAT 97
[2024-07-21 19:48] VITALS: BP 132/83; PULSE 108; RESP 16; TEMP 97.6; O2SAT 97
[2024-07-22 08:00] VITALS: BP 116/74; PULSE 84; RESP 16; TEMP 96.8; O2SAT 99
[2024-07-22 19:49] VITALS: RESP 15; O2SAT 97
[2024-07-22 20:00] VITALS: BP 136/95; PULSE 82; RESP 15; TEMP 98.6; O2SAT 97
[2024-07-23 07:30] VITALS: BP 143/86; PULSE 15; RESP 15; TEMP 97.6; O2SAT 99
[2024-07-23 08:00] VITALS: RESP 15; O2SAT 99
[2024-07-23 08:08] VITALS: PULSE 86; RESP 16; O2SAT 96
[2024-07-23 08:10] VITALS: PULSE 86; RESP 16
[2024-07-23 19:00] VITALS: RESP 16
[2024-07-23 20:00] VITALS: RESP 16
[2024-07-24 07:30] VITALS: BP 135/70; PULSE 88; RESP 16; TEMP 98; O2SAT 97
[2024-07-24 18:56] VITALS: BP 113/74; PULSE 92; RESP 16; TEMP 97.8; O2SAT 98
[2024-07-24 19:03] VITALS: BP 113/74; PULSE 92; RESP 16; TEMP 97.8; O2SAT 98
[2024-07-25 07:30] VITALS: BP 130/85; PULSE 109; RESP 16; TEMP 97.5; O2SAT 94
[2024-07-25 19:00] VITALS: RESP 18; O2SAT 98
[2024-07-25 19:51] VITALS: BP 110/71; PULSE 79; RESP 18; TEMP 97.3; O2SAT 98
[2024-07-25] MEDS: docusate sod 100mg capsule PO SCH (21:46)
[2024-07-25] MEDS: CLOZAPINE 100 MG TAB.RAPDIS PO SCH (21:46)
[2024-07-26 07:00] VITALS: BP 123/95; PULSE 100; RESP 17; TEMP 98.1; O2SAT 97
[2024-07-26 08:43] VITALS: RESP 18; O2SAT 95
[2024-07-26 08:48] VITALS: PULSE 85; RESP 16; O2SAT 95
[2024-07-26 19:00] VITALS: RESP 16; O2SAT 96
[2024-07-26 20:00] VITALS: BP 103/76; PULSE 72; RESP 16; TEMP 97.3; O2SAT 96
[2024-07-26] MEDS: bisacodyl 5mg tablet.DR PO PRN (20:27)
[2024-07-27 07:02] VITALS: BP 99/61; PULSE 92; RESP 14; TEMP 97.4; O2SAT 97
[2024-07-27 08:51] VITALS: RESP 14; O2SAT 97
[2024-07-27 11:40] VITALS: PULSE 74; RESP 16; O2SAT 92
[2024-07-27 11:45] VITALS: PULSE 76; RESP 16
[2024-07-27 19:00] VITALS: BP 115/69; PULSE 71; RESP 16; TEMP 97.7; O2SAT 95
[2024-07-27 20:10] VITALS: PULSE 74; RESP 16; O2SAT 95
[2024-07-28 07:30] VITALS: BP 99/66; PULSE 100; RESP 16; TEMP 98.3; O2SAT 94
[2024-07-28 16:25] VITALS: PULSE 72; RESP 12; O2SAT 97
[2024-07-28 18:46] VITALS: RESP 16; O2SAT 94
[2024-07-28 19:17] VITALS: BP 117/76; PULSE 74; RESP 16; TEMP 97.5; O2SAT 96
[2024-07-28 20:23] VITALS: PULSE 83; RESP 16; O2SAT 95
[2024-07-29 07:00] VITALS: RESP 16; O2SAT 97
[2024-07-29 08:00] VITALS: BP 92/60; PULSE 87; RESP 16; TEMP 98.7; O2SAT 97
[2024-07-29 18:35] VITALS: RESP 16; O2SAT 97
[2024-07-29 19:25] VITALS: BP 137/89; PULSE 78; RESP 18; TEMP 97.3; O2SAT 97
[2024-07-30 07:00] VITALS: RESP 16; O2SAT 96
[2024-07-30 08:00] VITALS: BP 122/82; PULSE 82; RESP 16; TEMP 97.2; O2SAT 96
[2024-07-30 08:01] VITALS: PULSE 90; PULSE 91; RESP 14; RESP 16; O2SAT 95
[2024-07-30 18:15] VITALS: RESP 16; O2SAT 98
[2024-07-30 19:20] VITALS: BP 116/82; PULSE 77; RESP 16; TEMP 97.9; O2SAT 99
[2024-07-31 07:00] VITALS: RESP 16; O2SAT 96
[2024-07-31 08:00] VITALS: BP 108/82; PULSE 86; RESP 16; TEMP 98.3; O2SAT 96
[2024-07-31 19:00] VITALS: RESP 18; O2SAT 94
[2024-07-31 20:00] VITALS: BP 113/76; PULSE 74; RESP 18; TEMP 97.6; O2SAT 94
[2024-08-01 07:00] VITALS: RESP 16; O2SAT 98
[2024-08-01 08:00] VITALS: BP 111/83; PULSE 89; RESP 16; TEMP 97.1; O2SAT 98
[2024-08-01 09:47] VITALS: PULSE 88; RESP 16; O2SAT 98
[2024-08-01 09:57] VITALS: PULSE 89; RESP 15
[2024-08-01 13:24] LABS: CLOZ+NORCLOZ TOTAL 571 ng/mL (.); CLOZAPINE, SERUM 288 ng/mL (350-600); NORCLOZAPINE, SERUM 283 ng/mL (Not Estab.)
[2024-08-01 19:00] VITALS: RESP 14; O2SAT 96
[2024-08-01 20:00] VITALS: BP 106/66; PULSE 69; RESP 14; TEMP 98.4; O2SAT 96
[2024-08-02 07:00] VITALS: RESP 16; O2SAT 95
[2024-08-02 08:00] VITALS: BP 117/68; PULSE 79; RESP 16; TEMP 97.9; O2SAT 95
[2024-08-02 20:00] VITALS: RESP 16; O2SAT 95
[2024-08-02 20:05] VITALS: BP 98/68; PULSE 64; RESP 16; TEMP 98.1; O2SAT 96
[2024-08-03 07:00] VITALS: RESP 16; O2SAT 94
[2024-08-03 08:00] VITALS: BP 107/78; PULSE 95; RESP 16; TEMP 97.5; O2SAT 94
== END 2024-08-03 09:30 | disposition home or self-care (01) | DRG 885 ==
LOC: ER 12:37 → ED HOLD 19:58 → ADULT MH 20:14
PROVIDERS: ADMIT Psychiatry & Neurology Psychiatry; ATTEND Psychiatry & Neurology Psychiatry
DX: F20.0 Paranoid schizophrenia (principal); E11.65 Type 2 diabetes mellitus with hyperglycemia; E78.5 Hyperlipidemia, unspecified; Z20.822 Contact with and (suspected) exposure to COVID-19; F15.10 Other stimulant abuse, uncomplicated; F17.200 Nicotine dependence, unspecified, uncomplicated; J44.9 Chronic obstructive pulmonary disease, unspecified; K21.9 Gastro-esophageal reflux disease without esophagitis; K59.00 Constipation, unspecified; Z79.899 Other long term (current) drug therapy; Z79.84 Long term (current) use of oral hypoglycemic drugs; Z86.73 Personal history of transient ischemic attack (TIA), and cerebral infarction without residual deficits; Z91.148 Patient's other noncompliance with medication regimen for other reason
CPT/HCPCS: 36415; 71045; 80048; 80061; 80305; 80320; 81001; 83036; 84443; 85025; 87081; 87811; 92508; 92616; 94640; 94760; 99285